=== PATIENT | male | born 1950 | race Two or more races ===

== ENCOUNTER 2018-07-31 12:03 | Outpatient (CLI) | payer OTHER ==
[~2018-07-31 12:03] MED LIST: IBUPROFEN800 MG PO; TIZANIDINE HCL4 MG PO
== END 2018-07-31 12:08 | disposition home or self-care (01) ==
LOC: SONOGRAMA 12:03
DX: M75.81 Other shoulder lesions, right shoulder (principal); M75.41 Impingement syndrome of right shoulder

== ENCOUNTER 2020-03-26 10:52 | Outpatient (CLI) | payer OTHER | END 2020-03-26 11:05 | disposition home or self-care (01) | LOC: RAD 10:52 | PROVIDERS: ATTEND Surgery | DX: N47.1 Phimosis (principal) ==

== ENCOUNTER 2020-03-26 12:34 | Outpatient (CLI) | payer OTHER | END 2020-03-26 12:44 | disposition home or self-care (01) | LOC: EKG 12:34 | PROVIDERS: ATTEND Surgery | DX: N47.1 Phimosis (principal); I10 Essential (primary) hypertension ==

== ENCOUNTER 2021-03-01 15:18 | Outpatient (CLI) | payer OTHER | END 2021-03-01 15:50 | disposition home or self-care (01) | LOC: MRI 15:18 | DX: M54.40 Lumbago with sciatica, unspecified side (principal) | CPT/HCPCS: 72148 ==

== ENCOUNTER 2023-12-03 08:49 | Inpatient (IN) | payer OTHER ==
[~2023-12-03] VITALS: Ht 177.8 cm; Wt 73.9 kg
[2023-12-03] MEDS ORDERED: TOPROL XL50 M1 (09:09)
[2023-12-03] MEDS ORDERED: VASOTEC5 MG PO (09:10)
[2023-12-03] MEDS ORDERED: FAMOTIDINE/PF 20 MG in 0.9 % SODIUM CHLORIDE 8 ML IV PUSH STA (09:30)
[2023-12-03] MEDS ORDERED: KETOROLAC TROMETHAMINE 30 MG VIAL IV ONE (09:30)
[2023-12-03] MEDS ORDERED: 0.9 % SODIUM CHLORIDE 1,000 ML IV SCH ×2 (09:45→16:45)
[2023-12-03 10:33] LABS: HEMATOCRIT 46.2 % (39.0-48.0); HEMOGLOBIN 15.9 g/dL (13-16.00); MEAN CELL VOLUME 82.6 fL (80.0-100.00); MEAN CORPUSCULAR HEMOGLOBIN 28.5 pg (27.00-32.0); MEAN CORPUSCULAR HGB CONC 34.5 g/dl (32.0-36.0); RED CELL DISTRIBUTION WIDTH 13.6 % (11.5-14.5)
[2023-12-03 10:46] LABS: INR 0.99; PARTIAL THROMBOPLASTIN TIME 28.8 SECONDS (22.0-34.0); PROTHROMBIN TIME 10.4 SECONDS (9.0-11.5)
[2023-12-03 10:51] LABS: ALBUMIN 3.7 gm/dL (3.4-5.0); BILIRUBIN TOTAL 0.41 mg/dL (0.3-1.2); CALCIUM 9.9 mg/dL (8.5-10.1); CREATININE SERUM 1.08 mg/dL (0.70-1.30); GFR 67.59; GLOBULINA 4.3 G/DL (2.4-3.5); POTASSIUM 4.27 mEq/L (3.5-5.1)
[2023-12-03 10:55] LABS: PH,URINE 5.5 (5.0-8.0); URINE APPEARANCE Clear; URINE BILIRRUBIN Negative (NEGATIVE); URINE BLOOD Negative; URINE COLOR Yellow; URINE GLUCOSE Negative (NEGATIVE); URINE LEUKOCYTE Negative; URINE NITRATE Negative; URINE PROTEIN Negative (NEGATIVE); URINE UROBILINOGEN 0.2 E.U./dl
[2023-12-03 10:58] LABS: PLATELET COUNT 235 K/uL (150-450)
[2023-12-03 10:59] LABS: URINE BACTERIA 6.2 uL (0.0-1933); URINE EPITHELIAL CELLS 1.5 uL (0.0-38.8); URINE RBC 7.4 uL (0.0-20.8); URINE WBC 5.8 uL (0.0-23.2)
[2023-12-03] MEDS ORDERED: PIPERACILLIN/TAZOBACTAM SODIUM 3.375 GM in 0.9 % SODIUM CHLORIDE 100 ML IV SCH (13:39)
[2023-12-03] MEDS ORDERED: ACETAMINOPHEN 500 MG GEL..CAP PO PRN (16:45)
[2023-12-03] MEDS ORDERED: MEPERIDINE HCL/PF 25 MG/ML VIAL IM PRN (16:45)
[2023-12-03] MEDS ORDERED: SUGAMMADEX SODIUM 200 MG/2 ML VIAL IV ONE (20:31)
[2023-12-03] MEDS ORDERED: MORPHINE SULFATE 4 MG/ML VIAL IV SCH (21:00)
[2023-12-03] MEDS ORDERED: ENALAPRILAT DIHYDRATE 2.5 MG/2 ML VIAL IV ONE (21:27)
[2023-12-03] MEDS ORDERED: hydrALAZINE HCL 20 MG VIAL ONE (21:40)
[2023-12-04] MEDS ORDERED: PIPERACILLIN/TAZOBACTAM SODIUM 3.375 GM VIAL IV ONE ×2 (01:10→05:26)
[2023-12-04 04:32] LABS: ABG PH 7.401 (7.35-7.45); ABG PO2 70.5 mmHg (80-100); ABG pCO2 36.1 mmHg (35-45); BASE EXCESS -2.2 mmol/l; BICARBONATE 21.9 mmol/l (23-25); SaO2 93.8 %; o2 21 %
[2023-12-04 04:33] LABS: allen test SATISFACTORY; puncture site RADIAL RIGHT
[2023-12-04] MEDS ORDERED: FAMOTIDINE/PF 20 MG/2 ML VIAL ONE ×2 (07:02→08:35)
[2023-12-04] MEDS ORDERED: MORPHINE SULFATE 4 MG/ML CARTRIDGE IV SCH (09:00)
[2023-12-04] MEDS ORDERED: FAMOTIDINE/PF 20 MG in 0.9 % SODIUM CHLORIDE 8 ML IV PUSH SCH (09:00)
[2023-12-04] MEDS ORDERED: ATORVASTATIN CALCIUM 40 MG TABLET PO SCH (09:30)
[2023-12-04] MEDS ORDERED: METOPROLOL SUCCINATE 25 MG TAB.SR.24H PO SCH (09:30)
[2023-12-04] MEDS ORDERED: BUPROPION HCL 150 MG TABLET.SA PO SCH (09:30)
[2023-12-04] MEDS ORDERED: AMLODIPINE BESYLATE 2.5 MG TABLET PO SCH (09:30)
[2023-12-05] MEDS ORDERED: 0.9 % SODIUM CHLORIDE 10 ML VIAL IJ ONE (09:05)
== END 2023-12-05 14:57 | disposition home or self-care (01) | DRG 399 ==
LOC: ER 08:49 → SURH 17:12
PROVIDERS: Anesthesiology Pain Medicine; General Practice; Surgery; ADMIT Internal Medicine; ATTEND Internal Medicine
PROC: 0DTJ4ZZ Resection of Appendix, Percutaneous Endoscopic Approach (ICD-10-PCS; principal; 2023-12-03 20:00)
DX: K35.80 Unspecified acute appendicitis (principal); I10 Essential (primary) hypertension; F41.9 Anxiety disorder, unspecified

== ENCOUNTER 2023-12-28 08:37 | Emergency (ER) | payer OTHER ==
[~2023-12-28] VITALS: Ht 177.8 cm; Wt 73.9 kg
[~2023-12-28 08:37] MED LIST changes: +TOPROL XL50 M1; +VASOTEC5 MG PO
[2023-12-28] MEDS ORDERED: BUPROPION XL450 MG (09:06)
[2023-12-28] MEDS ORDERED: TOPROL XL25 M1 (09:06)
[2023-12-28] MEDS ORDERED: AMLODIPINE-OLM1 EAC2 (09:06)
[2023-12-28] MEDS ORDERED: ATORVASTATIN CA80 MG PO (09:07)
[2023-12-28] MEDS ORDERED: MECLIZINE HCL 25 MG TABLET PO ONE (09:15)
[2023-12-28 09:37] LABS: HEMATOCRIT 42.4 % (39.0-48.0); HEMOGLOBIN 14.6 g/dL (13-16.00); MEAN CELL VOLUME 84.3 fL (80.0-100.00); MEAN CORPUSCULAR HEMOGLOBIN 29.1 pg (27.00-32.0); MEAN CORPUSCULAR HGB CONC 34.5 g/dl (32.0-36.0); PLATELET COUNT 285 K/uL (150-450); RED BLOOD COUNT 5.03 M/uL (4.00-6.00); RED CELL DISTRIBUTION WIDTH 13.5 % (11.5-14.5)
== END 2023-12-28 10:49 | disposition home or self-care (01) ==
LOC: ER 08:37
PROVIDERS: Emergency Medicine
DX: R42 Dizziness and giddiness (principal); I10 Essential (primary) hypertension